=== PATIENT | female | born 1975 ===

== ENCOUNTER 2020-02-15 11:28 | Emergency (ER) | payer OTHER ==
[2020-02-15] MEDS ORDERED: traMADol 50 MG TAB PO ONE (11:48)
[2020-02-15 11:55] VITALS: BP 151/91
--- NOTE | 2020-02-15 12:16 | Emergency Department Report ---
ED Fall HPI - General Chief Complaint: Fall Stated Complaint: RT ANKLE PAIN/RT HIP PAIN Time Seen by Provider: 02/15/20 11:48 Source: patient Mode of arrival: Wheelchair - History of Present Illness Initial Comments: Patient is a 44-year-old female presents emergency room with complaints of a fall that occurred just prior to arrival. She states that the floor had recently been mopped and she did not realize and she accidentally slipped and fell. She states that she did hit her head on the floor and is now complaining of a headache. She is also having lower back pain, right hip pain, right ankle pain. She denies any loss of consciousness, vomiting, vision changes, numbness, weakness, bowel or bladder incontinence, any other injury. She has a past medical history of migraines. She states that she has an allergy to NSAIDs. She states that she went through menopause. - Related Data Previous Rx's Medication Instructions Recorded Last Taken Type Acetaminophen [Tylenol] 650 mg PO Q8HR PRN #20 capsule 02/15/20 Unknown Rx methOCARBAMOL [Robaxin TAB] 500 mg PO BID PRN #14 tablet 02/15/20 Unknown Rx Allergies Allergy/AdvReac Type Severity Reaction Status Date / Time NSAIDS (Non-Steroidal AdvReac Unknown Verified 02/15/20 11:54 Anti-Inflamma ED Review of Systems ROS: Stated complaint: RT ANKLE PAIN/RT HIP PAIN Other details as noted in HPI Comment: All other systems reviewed and negative ED Past Medical Hx - Past Medical History Previous Medical History?: No - Surgical History Past Surgical History?: No - Social History Smoking Status: Never Smoker Substance Use Type: None - Medications Home Medications: Home Medications Medication Instructions Recorded Confirmed Last Taken Type Acetaminophen [Tylenol] 650 mg PO Q8HR PRN #20 capsule 02/15/20 Unknown Rx methOCARBAMOL [Robaxin TAB] 500 mg PO BID PRN #14 tablet 02/15/20 Unknown Rx ED Physical Exam - General Limitations: No Limitations General appearance: alert, in no apparent distress - Head Head exam: Present: atraumatic, normocephalic - Eye Eye exam: Present: normal appearance, PERRL, EOMI. Absent: periorbital swelling, periorbital tenderness Pupils: Present: normal accommodation - ENT ENT exam: Present: mucous membranes moist - Neck Neck exam: Present: normal inspection, full ROM. Absent: tenderness - Respiratory Respiratory exam: Present: normal lung sounds bilaterally. Absent: respiratory distress, wheezes, rales, rhonchi, stridor, chest wall tenderness, accessory muscle use, decreased breath sounds, prolonged expiratory - Cardiovascular Cardiovascular Exam: Present: regular rate, normal rhythm, normal heart sounds. Absent: systolic murmur, diastolic murmur, rubs, gallop - Extremities Exam Extremities exam: Present: other (right lateral hip ttp, right bilateral ankle ttp, no deformity, no ecchymosis, no edema, FROM of the RLE, no bony ttp of the BUE, FROM of the BUE, no deformity, no ecchymosis, no edema, neurovascularly intact throughout) - Back Exam Back exam: Present: normal inspection, full ROM, paraspinal tenderness (bilateral lumbar paraspinal muscular ttp, no midline C-spine, T-spine or L- spine ttp, no step offs, no deformities). Absent: vertebral tenderness - Neurological Exam Neurological exam: Present: alert, oriented X3, CN II-XII intact, normal gait. Absent: motor sensory deficit - Psychiatric Psychiatric exam: Present: normal affect, normal mood - Skin Skin exam: Present: warm, dry, intact ED Course Vital Signs 02/15/20 02/15/20 11:39 11:53 Temperature 98.1 F Pulse Rate 69 Respiratory 18 18 Rate Blood Pressure 151/91 O2 Sat by Pulse 100 Oximetry ED Medical Decision Making - Radiology Data Radiology results: report reviewed Ordering Physician: REBECA FLORES Date of Service: 02/15/20 Procedure(s): XR spine lumbosacral 2-3V Accession Number(s): [id number] cc: REBECA FLORES Fluoro Time In Minutes: XR spine lumbosacral 2-3V INDICATION / CLINICAL INFORMATION: low back pain, fall. COMPARISON: None available. FINDINGS: VERTEBRAE: No acute fracture. No significant malalignment. DISC SPACES / FACET JOINTS:There is mild multilevel disc degenerative change and lower lumbar facet arthropathy. PARASPINAL SOFT TISSUES:No significant abnormality. ADDITIONAL FINDINGS: None. IMPRESSION: Mild lower lumbar spondylosis. No acute process identified. Signer Name: Katie Penaloza MD Signed: 02/15/2020 12:38 PM Workstation Name: [id number] Transcribed By: KARINA Dictated By: KATIE WALKER MD Electronically Authenticated By: KATIE WALKER MD Signed Date/Time: 02/15/20 1238 DD/ 1237 TD/TT: Ordering Physician: REBECA FLORES Date of Service: 02/15/20 Procedure(s): CT head/brain wo con Accession Number(s): [id number] cc: REBECA FLORES NONENHANCED CT SCAN OF THE HEAD: INDICATION / CLINICAL INFORMATION: 44 years Female; fall, hit head, headache. TECHNIQUE: Routine CT head without contrast. All CT scans at this location are performed using CT dose reduction for ALARA by means of automated exposure control. COMPARISON: None. FINDINGS: BRAIN / INTRACRANIAL CONTENTS: No intracranial sequela from the trauma; no scalp hematoma; no air- fluid level in the visualized portions of the paranasal sinuses No acute hemorrhage, mass effect, midline shift, hydrocephalus, or acute, large territorial infarct. No chronic infarct or focal atrophy. Normal brain volume and ventricular/sulcal size for age. No significant white matter abnormality. CRANIOCERVICAL JUNCTION: No significant abnormality. ORBITS: No significant abnormality of visualized orbits. SINUSES / MASTOIDS: No significant abnormality of the visualized paranasal sinuses or mastoid air cells. ADDITIONAL FINDINGS: None. IMPRESSION: No intracranial sequela from the trauma Signer Name: Chaya Colon MD Signed: 02/15/2020 1:08 PM Workstation Name: [id number] Transcribed By: BS Dictated By: Chaya Mcknight MD Electronically Authenticated By: Chaya Mcknight MD Signed Date/Time: 02/15/20 1308 DD/ 1306 TD/TT: Ordering Physician: REBECA FLORES Date of Service: 02/15/20 Procedure(s): XR ankle 3+V RT Accession Number(s): [id number] cc: REBECA FLORES Fluoro Time In Minutes: RIGHT ANKLE 4 VIEW(S) INDICATION / CLINICAL INFORMATION: fall, right ankle pain COMPARISON: None available. FINDINGS: BONES / JOINT(S): No acute fracture or subluxation. Ankle mortise is symmetric. Mild osteoarthritis of the ankle. SOFT TISSUES: No significant abnormality. ADDITIONAL FINDINGS: None. IMPRESSION: No acute osseous findings in the right ankle. Signer Name: Katie Penaloza MD Signed: 02/15/2020 12:36 PM Workstation Name: [id number] Transcribed By: KARINA Dictated By: KATIE WALKER MD Electronically Authenticated By: KATIE WALKER MD Signed Date/Time: 02/15/20 1236 DD/ 1236 TD/TT: Ordering Physician: REBECA FLORES Date of Service: 02/15/20 Procedure(s): XR hip 2-3V RT Accession Number(s): [id number] cc: REBECA FLORES Fluoro Time In Minutes: XR hip 2-3V RT INDICATION / CLINICAL INFORMATION: fall, right hip pain COMPARISON: None FINDINGS: BONES / JOINT(S): No acute fracture or subluxation. [id number] bilateral hip osteoarthritis. SOFT TISSUES: No significant abnormality. ADDITIONAL FINDINGS: None. IMPRESSION: No acute osseous findings of the pelvis/right hip Signer Name: Katie Penaloza MD Signed: 02/15/2020 12:38 PM Workstation Name: [id number] Transcribed By: KARINA Dictated By: KATIE WALKER MD Electronically Authenticated By: KATIE WALKER MD Signed Date/Time: 02/15/20 1238 DD/ 1236 TD/TT: - Medical Decision Making Patient is a 44-year-old female presents emergency room with complaints of a fall that occurred just prior to arrival. She states that the floor had recently been mopped and she did not realize and she accidentally slipped and fell. She states that she did hit her head on the floor and is now complaining of a headache. She is also having lower back pain, right hip pain, right ankle pain. She denies any loss of consciousness, vomiting, vision changes, numbness, weakness, bowel or bladder incontinence, any other injury. She has a past medical history of migraines. She states that she has an allergy to NSAIDs. She states that she went through menopause. vitals are normal. on exam: right la teral hip ttp, right bilateral ankle ttp, no deformity, no ecchymosis, no edema, FROM of the RLE, no bony ttp of the BUE, FROM of the BUE, no deformity, no ecchymosis, no edema, neurovascularly intact throughout, bilateral lumbar paraspinal muscular ttp, no midline C-spine, T-spine or L-spine ttp, no step offs, no deformities, no focal neuro deficits. XR L-spine: Mild lower lumbar spondylosis. No acute process identified. CT head: No intracranial sequela from the trauma. XR right ankle: No acute osseous findings in the right ankle. XR right hip: IMPRESSION: No acute osseous findings of the pelvis/right hip. Patient given pain medication while in the emergency department and symptoms improved. do not suspect acute emergent trauma. NEXUS criteria negative, C-spine can be cleared clinically. pt placed in donis wrap to right ankle by nurse and remained neurovascularly intact, given crutches. Patient given prescription for naproxen and Robaxin. Advised patient Please take medication as prescribed as needed. Do not drive or operate machinery while taking muscle relaxer Robaxin. May use ice pack, heating pad, rest, Epsom salt bath. Follow-up with your primary care doctor. return to emergency room for any new or worsening symptoms. - Differential Diagnosis strain, sprain, fx, dislocation, ICH, SDH, concussion, minor head injury Critical care attestation.: If time is entered above; I have spent that time in minutes in the direct care of this critically ill patient, excluding procedure time. ED Disposition Clinical Impression: Right hip pain Minor head injury Qualifiers: Encounter type: initial encounter Qualified Code(s): S09.90XA - Unspecified injury of head, initial encounter Right ankle pain Qualifiers: Chronicity: acute Qualified Code(s): M25.571 - Pain in right ankle and joints of right foot Acute lumbar myofascial strain Qualifiers: Encounter type: initial encounter Qualified Code(s): S39.012A - Strain of muscle, fascia and tendon of lower back, initial encounter Disposition: DC-01 TO HOME OR SELFCARE Is pt being admited?: No Does the pt Need Aspirin: No Condition: Stable Instructions: Ankle Sprain, Penm-ea-Rnfz, Musculoskeletal Pain, Muscle Strain Additional Instructions: Please take medication as prescribed as needed. Do not drive or operate machinery while taking muscle relaxer Robaxin. May use ice pack, heating pad, rest, Epsom salt bath. Follow-up with your primary care doctor. return to emergency room for any new or worsening symptoms. Prescriptions: methOCARBAMOL [Robaxin TAB] 500 mg PO BID PRN #14 tablet PRN Reason: pain Acetaminophen [Tylenol] 650 mg PO Q8HR PRN #20 capsule PRN Reason: pain Referrals: PRIMARY CARE, [Primary Care Provider] - 2-3 Days PORTIA ABDI MD [Staff Physician] - 2-3 Days [facility] [Provider Group] - 2-3 Days Time of Disposition: 13:28 Print Language: SLOVAK
--- NOTE | 2020-02-15 12:41 | XRay Report ---
RIGHT ANKLE 4 VIEW(S) INDICATION / CLINICAL INFORMATION: fall, right ankle pain COMPARISON: None available. FINDINGS: BONES / JOINT(S): No acute fracture or subluxation. Ankle mortise is symmetric. Mild osteoarthritis o f the ankle. SOFT TISSUES: No significant abnormality. ADDITIONAL FINDINGS: None. IMPRESSION: No acute osseous findings in the right ankle. Signer Name: Emmett Penaloza MD Signed: 02/15/2020 12:36 PM Workstation Name: [id number]
--- NOTE | 2020-02-15 12:42 | XRay Report ---
XR spine lumbosacral 2-3V INDICATION / CLINICAL INFORMATION: low back pain, fall. COMPARISON: None available. FINDINGS: VERTEBRAE: No acute fracture. No significant malalignment. DISC SPACES / FACET JOINTS:There is mild multilevel disc degenerative change and lower lumbar facet a rthropathy. PARASPINAL SOFT TISSUES:No significant abnormality. ADDITIONAL FINDINGS: None. IMPRESSION: Mild lower lumbar spondylosis. No acute process identified. Signer Name: Emmett Penaloza MD Signed: 02/15/2020 12:38 PM Workstation Name: [id number]
--- NOTE | 2020-02-15 12:42 | XRay Report ---
XR hip 2-3V RT INDICATION / CLINICAL INFORMATION: fall, right hip pain COMPARISON: None FINDINGS: BONES / JOINT(S): No acute fracture or subluxation. [id number] bilateral hip osteoarthritis. SOFT TISSUES: No significant abnormality. ADDITIONAL FINDINGS: None. IMPRESSION: No acute osseous findings of the pelvis/right hip Signer Name: Emmett Penaloza MD Signed: 02/15/2020 12:38 PM Workstation Name: [id number]
--- NOTE | 2020-02-15 13:12 | Cat Scan Report ---
NONENHANCED CT SCAN OF THE HEAD: INDICATION / CLINICAL INFORMATION: 44 years Female; fall, hit head, headache. TECHNIQUE: Routine CT head without contrast. All CT scans at this location are performed using CT dos e reduction for ALARA by means of automated exposure control. COMPARISON: None. FINDINGS: BRAIN / INTRACRANIAL CONTENTS: No intracranial sequela from the trauma; no scalp hematoma; no air-flu id level in the visualized portions of the paranasal sinuses No acute hemorrhage, mass effect, midline shift, hydrocephalus, or acute, large territorial infarct. No chronic infarct or focal atrophy. Normal brain volume and ventricular/sulcal size for age. No sign ificant white matter abnormality. CRANIOCERVICAL JUNCTION: No significant abnormality. ORBITS: No significant abnormality of visualized orbits. SINUSES / MASTOIDS: No significant abnormality of the visualized paranasal sinuses or mastoid air blair ls. ADDITIONAL FINDINGS: None. IMPRESSION: No intracranial sequela from the trauma Signer Name: Chaya Colon MD Signed: 02/15/2020 1:08 PM Workstation Name: [id number]
== END 2020-02-15 14:07 | disposition home or self-care (01) ==
LOC: ED 11:28
DX: S09.90XA Unspecified injury of head, initial encounter (principal); S39.012A Strain of muscle, fascia and tendon of lower back, initial encounter; M25.571 Pain in right ankle and joints of right foot; M25.551 Pain in right hip; Z79.899 Other long term (current) drug therapy; Z88.8 Allergy status to other drugs, medicaments and biological substances; W01.0XXA Fall on same level from slipping, tripping and stumbling without subsequent striking against object, initial encounter; Y93.89 Activity, other specified; Y92.89 Other specified places as the place of occurrence of the external cause; Y99.8 Other external cause status
CPT/HCPCS: 70450; 72100